=== PATIENT | male | born 1980 | race Caucasian/White ===

== ENCOUNTER → 2017-11-02 14:35 | Outpatient (CLI) | payer OTHER ==
[~2017-11-02] VITALS: Ht 152.4 cm; Wt 144.2 kg
[~2017-11-02 14:35] MED LIST: ATARAX25 MG PO; BACTROBAN OINT22 GM TP; ENALAPRIL MALEAT5 MG; GEMFIBROZIL600 MG PO; GILTUSS TR TAB1 EACH PO; NIACIN250 M2 PO; VASOTEC10 MG PO; ZANTAC300 MG PO; ZITHROMAX TRI-500 MG PO; ZYRTEC10 MG PO
== END | disposition home or self-care (01) ==
LOC: PPHC 14:35
DX: R21 Rash and other nonspecific skin eruption (principal)

== ENCOUNTER → 2017-11-05 | Outpatient (CLI) | payer OTHER ==
[~2017-11-05] VITALS: Ht 152.4 cm; Wt 144.2 kg
== END | disposition home or self-care (01) ==
LOC: PPHC 11:38
DX: T78.49XA Other allergy, initial encounter (principal)